=== PATIENT | female | born 1950 | race Caucasian/White ===

== ENCOUNTER 2017-06-06 12:56 | Emergency (ER) | payer MEDICAID, SELFPAY | END 2017-06-06 14:35 | disposition home or self-care (01) | PROVIDERS: Emergency Provider Emergency Medicine; Family Provider Emergency Medicine; Visit Provider Emergency Medicine | DX: S42.295A Other nondisplaced fracture of upper end of left humerus, initial encounter for closed fracture (principal); W05.0XXA Fall from non-moving wheelchair, initial encounter; Z91.81 History of falling; Y92.129 Unspecified place in nursing home as the place of occurrence of the external cause; S80.01XA Contusion of right knee, initial encounter; I10 Essential (primary) hypertension; E78.5 Hyperlipidemia, unspecified; E11.9 Type 2 diabetes mellitus without complications; Z79.4 Long term (current) use of insulin; F41.9 Anxiety disorder, unspecified; Z88.2 Allergy status to sulfonamides | CPT/HCPCS: 73030; 73060; 73562; 99284 ==

== ENCOUNTER → 2017-06-17 10:54 | Outpatient (CLI) | payer MEDICAID, SELFPAY ==
--- NOTE | 2017-06-17 11:00 | XR_ITS ---
XR shoulder LT min 2V CLINICAL INDICATION: Follow-up fracture ITS.REASON: LEFT SHOULDER FRACTURE ORDERING PHYSICIAN: Donnie Aranda MD PATIENT AGE: 66 years COMPARISON: 06/06/2017 FINDINGS: Study is technically limited with decreased resolution. Nondisplaced fracture of the humeral neck noted with good alignment. No evidence of dislocation. The fracture line appears somewhat less apparent compared to the previous study however, this could in part be related to the technique. IMPRESSION: Nondisplaced fracture humeral neck once again noted with good alignment
== END ==
PROVIDERS: PCP Emergency Medicine; Visit Provider Orthopaedic Surgery
DX: S49.90XA Unspecified injury of shoulder and upper arm, unspecified arm, initial encounter (principal)
CPT/HCPCS: 73030

== ENCOUNTER → 2017-07-01 09:58 | Outpatient (CLI) | payer MEDICAID, SELFPAY ==
--- NOTE | 2017-07-01 10:00 | XR_ITS ---
XR shoulder LT min 2V HISTORY: ITS.REASON: follow up humeral next fracture ORDERING PHYSICIAN: Donnie Aranda MD PATIENT AGE: 66 years COMPARISON: 06/17/2017 FINDINGS: Humeral neck fracture once again noted. Fracture is nondisplaced. No significant callus formation. IMPRESSION: No change nondisplaced left humeral neck fracture
== END ==
PROVIDERS: PCP Emergency Medicine; Visit Provider Orthopaedic Surgery
DX: S49.92XA Unspecified injury of left shoulder and upper arm, initial encounter (principal); S42.295D Other nondisplaced fracture of upper end of left humerus, subsequent encounter for fracture with routine healing
CPT/HCPCS: 73030

== ENCOUNTER 2017-07-20 15:47 | Emergency (ER) | payer MEDICAID, SELFPAY ==
[2017-07-20 15:51] VITALS: BMI 108.9
[2017-07-20 15:57] VITALS: BP 147/102; PULSE 78; RESP 26; TEMP 36.7; O2SAT 95; BMI 51.0
[2017-07-20 16:16] LABS: POC Glucose,Bedside 494 mg/dL
[2017-07-20 16:27] LABS: Basophils # 0.1 K/mm3 (0-0.2); Basophils % 0.9 % (0.1-2.0); Eosinophils # 0.4 K/mm3 (0.0-0.4); Eosinophils % 4.9 % (0.1-12.0); Hematocrit 37.8 % (37.0-47.0); Hemoglobin 11.4 g/dL (12.2-16.2); Lymphocytes # 2.1 K/mm3 (0.7-4.5); Lymphocytes % 27.6 K/mm3 (10-50); Mean Corpuscular HGB Conc 30.2 g/dL (31.8-35.4); Mean Corpuscular Hemoglobin 32.9 pg (27.0-31.2); Mean Platelet Volume 8.8 fl (7.4-10.4); Monocytes # 0.5 K/mm3 (0.1-1.0); Monocytes % 6.8 % (1.7-9.3); Neutrophils # 4.6 K/mm3 (1.8-7.8); Neutrophils % 59.9 % (37.0-80.0); Platelet Count 172 K/mm3 (142-424); Red Blood Count 3.47 M/mm3 (4.20-5.40); White Blood Count 7.6 K/mm3 (4.8-10.8)
[2017-07-20 16:40] LABS: Alanine Aminotransferase 31 U/L (12-78); Albumin Level 3.4 gm/dL (3.4-5.0); Albumin/Globulin Ratio 0.9 (1.1-1.8); Alkaline Phosphatase 149 U/L (46-116); Anion Gap 14.3 mEq/L (5-15); Bilirubin,Total 0.4 mg/dL (0.2-1.0); Blood Urea Nitrogen 65 mg/dL (7-18); Calcium 8.8 mg/dL (8.5-10.1); Carbon Dioxide 27 mmol/L (21.0-32.0); Chloride 95 mmol/L (98-107); Creatinine Clearance Estimated 7 mL/min (0-300); Estimated Glomerular Filt Rate 7 ml/min (>60); GFR (African American) 8 ML/MIN (>60); Globulin 3.9 gm/dl (1.3-3.2); Sodium 131 mmol/L (136-145); Total Protein,Serum 7.3 gm/dL (6.4-8.2)
[2017-07-20 16:44] LABS: Creatinine,Serum 6.13 mg/dL (0.55-1.02)
[2017-07-20 16:45] LABS: Glucose 495 mg/dL (74-106)
--- NOTE | 2017-07-20 16:45 | PC.NURSE ---
abdoulaye gaytan reports glucose called from lab to ([phone])
[2017-07-20 16:46] LABS: Aspartate Amino Transferase 22 U/L (15-37); Potassium 5.3 mmoL/L (3.5-5.1)
[2017-07-20 16:51] LABS: Acetone, Serum (Rapid) None Detected (None Detect)
[2017-07-20 18:08] VITALS: BP 136/98; PULSE 82; RESP 22; O2SAT 95
--- NOTE | 2017-07-20 18:12 | HMH.EDGENADL ---
ED Disposition Clinical Impression: Hyperglycemia, ESRD (end stage renal disease) on dialysis Disposition: Admitted As Inpatient Condition on Discharge: Fair Instructions: DI for Hyperglycemia -- Adult Referrals: Jonathan Diaz MD [Primary Care Provider] - Time of Disposition: 18:50 - Critical Care Critical Care Time: No Attestation: On 07/20/17, the high probability of a clinically significant, sudden or life threatening deterioration of the following system(s) required my full and direct attention, intervention and personal management. The time I documented below is in addition to time spent performing reported procedures but includes the following listed in this critical care notation. Total Critical Care Time: 35 Vital system(s) involved:: Metabolic Failure My critical care processes included: Assessment & monitoring of V/S, Initial and Re-exams, Data Review/Interpretation, Coordinating Care, Medication Orders and management, Documentation Medical Decision Making - Medical Records Medical records reviewed: Yes: I reviewed the patient's medical records. Vital Signs: 07/20/17 15:57 07/20/17 18:08 Temperature 98.0 F Temperature Source Oral Pulse Rate [Right Radial] 78 82 Respiratory Rate 26 H 22 Blood Pressure [Right Arm] 147/102 136/98 Blood Pressure Mean [Right Arm] 117 110 Blood Pressure Source [Right Arm] Automatic Cuff Automatic Cuff Blood Pressure Position [Right Arm] Supine Sitting 02 Sat by Pulse Oximetry 95 95 Oxygen Delivery Method Room Air Room Air - Lab Data Lab results reviewed: Yes: I reviewed the patient's lab results. Lab Results 07/20/17 16:03: POC Glucose 494 07/20/17 16:10: WBC 7.6, RBC 3.47 L, Hgb 11.4 L, Hct 37.8, MCV 109.0 H, MCH 32.9 H, MCHC 30.2 L, RDW 14.0, Plt Count 172, MPV 8.8, Neut % (Auto) 59.9, Lymph % (Auto) 27.6, [place] % (Auto) 6.8, Eos % (Auto) 4.9, Baso % (Auto) 0.9, Neut # (Auto) 4.6, Lymph # (Auto) 2.1, [place] # (Auto) 0.5, Eos # (Auto) 0.4, Baso # (Auto) 0.1 07/20/17 16:10: Sodium 131 L, Potassium 5.3 H, Chloride 95 L, Carbon Dioxide 27, Anion Gap 14.3, BUN 65 H, Creatinine 6.13 H, Estimated Creat Clear 7, Estimated GFR 7 L*, Est GFR ( Amer) 8 L*, Glucose 495 H*, Calcium 8.8, Total Bilirubin 0.4, AST 22, ALT 31, Alkaline Phosphatase 149 H, Total Protein 7.3, Albumin 3.4, Globulin 3.9 H, Albumin/Globulin Ratio 0.9 L, Acetone Level None detected 07/20/17 18:29: POC Glucose 576 Result diagrams: 07/20/17 16:10 07/20/17 16:10 Orders (Tests/Meds): ED MEDICATIONS Generic Name Dose Route Start Last Admin Trade Name Freq PRN Reason Stop Dose Admin Furosemide 80 mg 07/20/17 18:41 Lasix 100mg/10ml Vial IV 07/20/17 18:42 ONCE ONE Discontinued Medications Generic Name Dose Route Start Last Admin Trade Name Freq PRN Reason Stop Dose Admin Insulin Human Lispro 12 unit 07/20/17 21:00 Humalog 100 Units/Ml 3ml Vial (Ssi) SQ 08/19/17 20:59 ACHS JIM Insulin Human Lispro 12 unit 07/20/17 17:42 07/20/17 17:43 Humalog 100 Units/Ml 3ml Vial (Ssi) SQ 07/20/17 17:43 12 unit ONCE ONE Administration Insulin Human Regular 5 unit 07/20/17 18:40 Humulin R Insulin 100 Units/Ml 10ml Vial IVP 07/20/17 18:41 ONCE ONE Sodium Polystyrene Sulfonate 30 gm 07/20/17 17:56 07/20/17 18:25 Kayexalate 15gm/60ml Bottle PO 07/20/17 17:57 30 gm ONCE ONE Administration ORDERS Category Date Time Status POC Glucose,Bedside Stat Lab 07/20/17 17:57 Ordered fingerstick glucose [POC Glucose,Bedside] Stat Lab 07/20/17 15:53 Ordered - Physician Consults Physician Consulted: Dr Franz, public health technician at covering for Dr Hidalgo. Time: 18:22 Reason -: Other ( on divert, transfer on hold.) Comment/Response: As discussed at length, advised of patient presentation and findings. Requested patient be transferred to [facility], but was advised by both drop hammer pile driver operator as well as public health technician that erosive contact
[2017-07-20 18:36] LABS: POC Glucose,Bedside 576 mg/dL
--- NOTE | 2017-07-20 18:50 | XR_ITS ---
XR chest portable HISTORY: ITS.REASON: SOA ORDERING PHYSICIAN: Jonathan Diaz MD PATIENT AGE: 66 years COMPARISON: 06/25/2016 FINDINGS: Study is limited technically due to patient's body habitus and portable technique. There is cardiomegaly with mild pulmonary venous congestion consistent with mild CHF. Atelectatic changes are present in the right mid and lower lung zone. No lobar consolidation or collapse. Study is obtained in a somewhat lordotic position. IMPRESSION: 1. Mild CHF. 2. Atelectasis in the right mid and lower lung field. 3. Limited exam. Consider follow-up PA and lateral chest for further evaluation
[2017-07-20 19:15] LABS: Microscopic, Urine URINE MICROSCOPIC (MICROSCOPIC)
[2017-07-20 19:17] LABS: Appearance,Urine SL CLOUDY (Clear); Bilirubin,Urine Negative (Negative); Blood, Urine Negative (Negative); Color,Urine YELLOW (Yellow); Glucose,Urine (UA) 2+ (Negative); Ketones,Urine TRACE (Negative); Leukocyte Esterase,Urine 2+ (Negative); Nitrate,Urine Negative (Negative); Protein,Urine Negative (Negative); Specific Gravity, Urine 1.025 (1.005-1.030); Urobilinogen,Urine 0.2 EU/dl (0.2)
[2017-07-20 19:43] LABS: Bacteria,Urine 4+ /lpf; Squamous Epithelial Cell,Urine Occasional #/hpf (0-5); WBC,Urine TNTC #/hpf (0-3)
[2017-07-20 19:55] LABS: POC Glucose,Bedside 532 mg/dL
[2017-07-20 20:30] VITALS: BP 136/88; PULSE 80; RESP 20; TEMP 36.6; O2SAT 96
== END 2017-07-20 20:29 | disposition admitted as inpatient to this hospital (09) ==
PROVIDERS: Emergency Medicine; Emergency Provider Emergency Medicine; Family Provider Emergency Medicine; PCP Emergency Medicine
DX: E11.22 Type 2 diabetes mellitus with diabetic chronic kidney disease (principal); E11.65 Type 2 diabetes mellitus with hyperglycemia; I12.0 Hypertensive chronic kidney disease with stage 5 chronic kidney disease or end stage renal disease; N18.6 End stage renal disease; Z79.4 Long term (current) use of insulin
CPT/HCPCS: 71045; 80053; 81001; 82009; 82962; 85025; 87086; 87088; 96372; 96374; 96375; 99282; 99283

== ENCOUNTER 2017-07-31 11:38 | Emergency (ER) | payer MEDICAID, SELFPAY ==
[2017-07-31 11:22] VITALS: BP 125/70; PULSE 85; RESP 18; O2SAT 85; BMI 26.6
--- NOTE | 2017-07-31 12:32 | HMH.EDGENADL ---
ED Disposition Clinical Impression: Constipation by delayed colonic transit, ESRD (end stage renal disease) on dialysis, Legal blindness, as defined in [place], Dependence on renal dialysis Hemorrhoids Qualifiers: Hemorrhoid type: unspecified Qualified Code(s): K64.9 - Unspecified hemorrhoids Disposition: Home, Self-Care Condition on Discharge: Fair Additional Instructions: Sit in tubs of warm water for 30 minutes twice a day and try to push the hemorrhoids back in. Use medicine as directed and followup withPCP as needed. Prescriptions: Hydrocortisone/Pramoxine [Proctofoam-Hc 1%-1% Foam] 10 gm RC QID 10 Days #10 foam Referrals: Jonathan Diaz MD [Primary Care Provider] - Time of Disposition: 16:42 - Critical Care Critical Care Time: No Attestation: On 07/31/17, the high probability of a clinically significant, sudden or life threatening deterioration of the following system(s) required my full and direct attention, intervention and personal management. The time I documented below is in addition to time spent performing reported procedures but includes the following listed in this critical care notation. Medical Decision Making - Medical Records Medical records reviewed: Yes: I reviewed the patient's medical records. Vital Signs: 07/31/17 11:22 Temperature Source Oral Pulse Rate [Right Brachial] 85 Respiratory Rate 18 Blood Pressure [Right Arm] 125/70 Blood Pressure Mean [Right Arm] 88 Blood Pressure Source [Right Arm] Automatic Cuff Blood Pressure Position [Right Arm] Sitting 02 Sat by Pulse Oximetry 85 L Oxygen Delivery Method Room Air - Lab Data Lab results reviewed: Yes: I reviewed the patient's lab results. Lab Results 07/31/17 11:35: WBC 9.6, RBC 3.54 L, Hgb 11.9 L, Hct 37.5, MCV 105.7 H, MCH 33.5 H, MCHC 31.6 L, RDW 13.6, Plt Count 228, MPV 8.5, Neut % (Auto) 61.7, Lymph % (Auto) 23.5, [place] % (Auto) 9.6 H, Eos % (Auto) 4.1, Baso % (Auto) 1.0, Neut # (Auto) 5.9, Lymph # (Auto) 2.2, [place] # (Auto) 0.9, Eos # (Auto) 0.4, Baso # (Auto) 0.1 02/16/18 11:35: Sodium 136, Potassium 4.6, Chloride 100, Carbon Dioxide 26, Anion Gap 14.6, BUN 59 H, Creatinine 4.56 H, Estimated Creat Clear 16, Estimated GFR 10 L*, Est GFR ( Amer) 12 L*, Glucose 212 H, Calcium 9.1, Total Bilirubin 0.3, AST 17, ALT 44, Alkaline Phosphatase 176 H, Total Protein 7.6, Albumin 3.6, Globulin 4.0 H, Albumin/Globulin Ratio 0.9 L Result diagrams: 07/31/17 11:35 07/31/17 11:35 Orders (Tests/Meds): ORDERS Category Date Time Status Occult Blood,Stool Stat Lab 07/31/17 12:42 Ordered Urinalysis and Microscopic Stat Lab 07/31/17 12:41 Ordered - CT Data CT Scan: Abdomen, Pelvis Time Received: 16:[address] Reviewed: Yes: I have reviewed the patient's CT results, I have viewed the radiologist's interpretation Findings Narrative: constipation,,,,nothing acute - Wilman Inquiry Pt receiving controlled substance: No General Adult HPI - General Chief complaint: GI Bleed Stated complaint: BLEEDING HEMORRHOIDS Time Seen by Provider: 07/31/17 12:30 Mode of Arrival: EMS Source of Information: Patient, Medical Record (from [place]) Limitations: No Limitations Description of Symptoms (Recalled from ER Triage Doc. by RN): PT STATES SHE HADN'T HAD A BM FOR SEVERAL DAYS; AND WAS GIVEN EXTRA BOWEL CARE. AND THEN WAS NOTED TO HAVE DEFECATED ALOT AND INJURED HER HEMNORRHOIDS - History of Present Illness HPI narrative: Pt is a resident of [facility]. She has DM, ESRD on HD on and Sat. and last night given a rectal suppository for hemorrhoids nad also given a prune juice and a [place] laxative but no BM and now sent to the ED with lower abd pain and bleeding from Hemorrhoids. No fever and no vomiting Onset (ago): hour(s) Location: abdomen, pelvis (hemorrhoids and lower abd pain) Severity: moderate Treatments prior to arrival: other (see above) - Related Data Home Medications Medication Instructions Paul
--- NOTE | 2017-07-31 12:37 | ED_ITS ---
ED Disposition Clinical Impression: Constipation by delayed colonic transit, ESRD (end stage renal disease) on dialysis, Legal blindness, as defined in [place], Dependence on renal dialysis Hemorrhoids Qualifiers: Hemorrhoid type: unspecified Qualified Code(s): K64.9 - Unspecified hemorrhoids Disposition: Home, Self-Care Condition on Discharge: Fair Additional Instructions: Sit in tubs of warm water for 30 minutes twice a day and try to push the hemorrhoids back in. Use medicine as directed and followup withPCP as needed. Prescriptions: Hydrocortisone/Pramoxine [Proctofoam-Hc 1%-1% Foam] 10 gm RC QID 10 Days #10 foam Referrals: Jonathan Diaz MD [Primary Care Provider] - Time of Disposition: 16:42 - Critical Care Critical Care Time: No Attestation: On 07/31/17, the high probability of a clinically significant, sudden or life threatening deterioration of the following system(s) required my full and direct attention, intervention and personal management. The time I documented below is in addition to time spent performing reported procedures but includes the following listed in this critical care notation. Medical Decision Making - Medical Records Medical records reviewed: Yes: I reviewed the patient's medical records. Vital Signs: 07/31/17 11:22 Temperature Source Oral Pulse Rate [Right Brachial] 85 Respiratory Rate 18 Blood Pressure [Right Arm] 125/70 Blood Pressure Mean [Right Arm] 88 Blood Pressure Source [Right Arm] Automatic Cuff Blood Pressure Position [Right Arm] Sitting 02 Sat by Pulse Oximetry 85 L Oxygen Delivery Method Room Air - Lab Data Lab results reviewed: Yes: I reviewed the patient's lab results. Lab Results 07/31/17 11:35: WBC 9.6, RBC 3.54 L, Hgb 11.9 L, Hct 37.5, MCV 105.7 H, MCH 33.5 H, MCHC 31.6 L, RDW 13.6, Plt Count 228, MPV 8.5, Neut % (Auto) 61.7, Lymph % (Auto) 23.5, [place] % (Auto) 9.6 H, Eos % (Auto) 4.1, Baso % (Auto) 1.0, Neut # (Auto) 5.9, Lymph # (Auto) 2.2, [place] # (Auto) 0.9, Eos # (Auto) 0.4, Baso # (Auto) 0.1 02/16/18 11:35: Sodium 136, Potassium 4.6, Chloride 100, Carbon Dioxide 26, Anion Gap 14.6, BUN 59 H, Creatinine 4.56 H, Estimated Creat Clear 16, Estimated GFR 10 L*, Est GFR ( Amer) 12 L*, Glucose 212 H, Calcium 9.1, Total Bilirubin 0.3, AST 17, ALT 44, Alkaline Phosphatase 176 H, Total Protein 7.6, Albumin 3.6, Globulin 4.0 H, Albumin/Globulin Ratio 0.9 L Result diagrams: 07/31/17 11:35 07/31/17 11:35 Orders (Tests/Meds): ORDERS Category Date Time Status Occult Blood,Stool Stat Lab 07/31/17 12:42 Ordered Urinalysis and Microscopic Stat Lab 07/31/17 12:41 Ordered - CT Data CT Scan: Abdomen, Pelvis Time Received: 16:[address] Reviewed: Yes: I have reviewed the patient's CT results, I have viewed the radiologist's interpretation Findings Narrative: constipation,,,,nothing acute - Wilman Inquiry Pt receiving controlled substance: No General Adult HPI - General Chief complaint: GI Bleed Stated complaint: BLEEDING HEMORRHOIDS Time Seen by Provider: 07/31/17 12:30 Mode of Arrival: EMS Source of Information: Patient, Medical Record (from [place]) Limitations: No Limitations Description of Symptoms (Recalled from ER Triage Doc. by RN): PT STATES SHE HADN 'T HAD A BM FOR SEVERAL DAYS; AND WAS GIVEN EXTRA BOWEL CARE. AND THEN WAS NOTED TO HAVE DEFECATED ALOT AND INJURED HER HEMNORRHOIDS - History of Present Illnes
--- NOTE | 2017-07-31 12:41 | CT_ITS ---
CT abdomen pelvis wo con CLINICAL INDICATION: Lower abdominal pain with bloody stool ITS.REASON: abd pain ORDERING PHYSICIAN: Scotty Cherry MD PATIENT AGE: 66 years COMPARISON: None TECHNIQUE: Axial images obtained with sagittal and coronal reformats. PROCEDURE: Oral Contrast: None IV Contrast: None . FINDINGS: There are atelectatic changes in the lung bases. Prior cholecystectomy. The liver, spleen, adrenal glands, are unremarkable. There is pancreatic atrophy. No renal mass or obstructing renal or ureteral calculus is evident. No intestinal obstruction or free air. No focal inflammatory change. No evidence of appendicitis or diverticulitis. There is a moderate amount retained colonic feces with air-fluid level in the ascending and transverse colon. Cystic changes are present in both adnexa measuring up to 2.7 cm on the right and 2.6 cm on the left.. There has been prior kyphoplasty at T12 with compression changes of T12. IMPRESSION: 1. Mild amount retained colonic feces with air-fluid levels in the ascending colon and transverse colon nonspecific and may be seen with diarrhea disease. 2. Small bilateral ovarian cyst. 3. Otherwise negative CT abdomen pelvis without contrast
[2017-07-31 12:59] LABS: Basophils # 0.1 K/mm3 (0-0.2); Eosinophils # 0.4 K/mm3 (0.0-0.4); Eosinophils % 4.1 % (0.1-12.0); Hematocrit 37.5 % (37.0-47.0); Hemoglobin 11.9 g/dL (12.2-16.2); Lymphocytes # 2.2 K/mm3 (0.7-4.5); Lymphocytes % 23.5 K/mm3 (10-50); Mean Corpuscular HGB Conc 31.6 g/dL (31.8-35.4); Mean Corpuscular Hemoglobin 33.5 pg (27.0-31.2); Mean Corpuscular Volume 105.7 fl (81-99); Mean Platelet Volume 8.5 fl (7.4-10.4); Monocytes # 0.9 K/mm3 (0.1-1.0); Monocytes % 9.6 % (1.7-9.3); Neutrophils # 5.9 K/mm3 (1.8-7.8); Neutrophils % 61.7 % (37.0-80.0); Platelet Count 228 K/mm3 (142-424); Red Blood Count 3.54 M/mm3 (4.20-5.40); Red Cell Distribution Width 13.6 % (11.5-17.5); White Blood Count 9.6 K/mm3 (4.8-10.8)
[2017-07-31 13:26] LABS: Alanine Aminotransferase 44 U/L (12-78); Albumin Level 3.6 gm/dL (3.4-5.0); Albumin/Globulin Ratio 0.9 (1.1-1.8); Alkaline Phosphatase 176 U/L (46-116); Anion Gap 14.6 mEq/L (5-15); Aspartate Amino Transferase 17 U/L (15-37); Bilirubin,Total 0.3 mg/dL (0.2-1.0); Blood Urea Nitrogen 59 mg/dL (7-18); Calcium 9.1 mg/dL (8.5-10.1); Carbon Dioxide 26 mmol/L (21.0-32.0); Chloride 100 mmol/L (98-107); Creatinine Clearance Estimated 16 mL/min (0-300); Estimated Glomerular Filt Rate 10 ml/min (>60); GFR (African American) 12 ML/MIN (>60); Glucose 212 mg/dL (74-106); Potassium 4.6 mmoL/L (3.5-5.1); Sodium 136 mmol/L (136-145); Total Protein,Serum 7.6 gm/dL (6.4-8.2)
[2017-07-31 13:27] LABS: Creatinine,Serum 4.56 mg/dL (0.55-1.02)
--- NOTE | 2017-07-31 13:51 | PC.NURSE ---
rt at bedside giving breathing treatment
[2017-07-31 17:10] VITALS: BP 118/79; PULSE 79; RESP 20; TEMP 36.6
== END 2017-07-31 17:16 | disposition home or self-care (01) ==
PROVIDERS: Emergency Provider General Practice; Family Provider Emergency Medicine; PCP Emergency Medicine
DX: K59.01 Slow transit constipation (principal); K64.9 Unspecified hemorrhoids; N18.6 End stage renal disease; Z99.2 Dependence on renal dialysis; H54.8 Legal blindness, as defined in USA; E11.65 Type 2 diabetes mellitus with hyperglycemia; Z79.84 Long term (current) use of oral hypoglycemic drugs; Z88.2 Allergy status to sulfonamides; Z79.899 Other long term (current) drug therapy
CPT/HCPCS: 74176; 80053; 85025; 99282

== ENCOUNTER → 2017-08-05 12:32 | Outpatient (CLI) | payer MEDICAID, SELFPAY ==
--- NOTE | 2017-08-05 12:34 | XR_ITS ---
XR shoulder LT min 2V HISTORY: Follow-up fracture ITS.REASON: follow up LEFT humerus fracture. ORDERING PHYSICIAN: Donnie Aranda MD PATIENT AGE: 66 years COMPARISON: 07/01/2017 FINDINGS: Study is limited technically due to patient's body habitus and inability to be properly positioned. There is healing fracture involving the left humeral neck without significant displacement with some developing callus formation posteriorly. IMPRESSION: Healing left humeral neck fracture
== END ==
PROVIDERS: PCP Emergency Medicine; Visit Provider Orthopaedic Surgery
DX: S42.202A Unspecified fracture of upper end of left humerus, initial encounter for closed fracture (principal)
CPT/HCPCS: 73030

== ENCOUNTER → 2017-08-11 13:48 | Outpatient (REF) | payer MEDICAID, SELFPAY | LOC: LAB 13:48 | PROVIDERS: Visit Provider Emergency Medicine | DX: R06.2 Wheezing (principal); R09.89 Other specified symptoms and signs involving the circulatory and respiratory systems | CPT/HCPCS: 87275; 87276 ==

== ENCOUNTER 2017-08-19 13:45 | Emergency (ER) | payer MEDICAID, SELFPAY ==
[2017-08-19 13:48] VITALS: BP 134/50; PULSE 92; RESP 20; TEMP 37.9; O2SAT 94; BMI 50.3
--- NOTE | 2017-08-19 15:07 | HMH.EDGENADL ---
ED Disposition Clinical Impression: Pneumonia Qualifiers: Pneumonia type: due to unspecified organism Laterality: bilateral Lung location: lower lobe of lung Qualified Code(s): J18.9 - Pneumonia, unspecified organism Disposition: Xfer SNF Condition on Discharge: Fair Instructions: DI for Pneumonia -- Adult Prescriptions: Ertapenem Sodium [Invanz 1gm Vial] 1 gm IV DAILY 10 Days #10 vial levoFLOXacin [Levaquin 250mg tab] 250 mg PO DAILY #10 tab Referrals: Jonathan Diaz MD [Primary Care Provider] - - Critical Care Critical Care Time: No Attestation: On 08/19/17, the high probability of a clinically significant, sudden or life threatening deterioration of the following system(s) required my full and direct attention, intervention and personal management. The time I documented below is in addition to time spent performing reported procedures but includes the following listed in this critical care notation. Medical Decision Making Vital Signs: 08/19/17 13:48 Temperature 100.3 F H Temperature Source Oral Pulse Rate [Right Radial] 92 H Respiratory Rate 20 Blood Pressure [Right Arm] 134/50 Blood Pressure Mean [Right Arm] 78 Blood Pressure Source [Right Arm] Automatic Cuff Blood Pressure Position [Right Arm] Sitting 02 Sat by Pulse Oximetry 94 L Oxygen Delivery Method Nasal Cannula Oxygen Flow Rate (LPM) 2 - Lab Data Lab Results 08/19/17 15:10: WBC 14.5 H, RBC 3.37 L, Hgb 11.4 L, Hct 36.8 L, MCV 109.1 H, MCH 33.8 H, MCHC 31.0 L, RDW 14.0, Plt Count 227, MPV 7.9, Neut % (Auto) 84.2 H, Lymph % (Auto) 8.9 L, [place] % (Auto) 5.6, Eos % (Auto) 0.9, Baso % (Auto) 0.4, Neut # (Auto) 12.2 H, Lymph # (Auto) 1.3, [place] # (Auto) 0.8, Eos # (Auto) 0.1, Baso # (Auto) 0.1 08/19/17 15:10: Sodium 132 L, Potassium 5.7 H, Chloride 95 L, Carbon Dioxide 23, Anion Gap 19.7 H, BUN 76 H, Creatinine 6.35 H, Estimated Creat Clear 7, Estimated GFR 7 L*, Est GFR ( Amer) 8 L*, Glucose 358 H, Calcium 8.8, Total Bilirubin 0.4, AST 56 H, ALT 64, Alkaline Phosphatase 228 H, Total Protein 7.7, Albumin 3.2 L, Globulin 4.5 H, Albumin/Globulin Ratio 0.7 L 08/19/17 15:10: Lactic Acid 1.3 08/19/17 16:45: Influenza Type A Ag Negative, Influenza Type B Ag Negative Result diagrams: 08/19/17 15:10 08/19/17 15:10 Orders (Tests/Meds): ED MEDICATIONS Discontinued Medications Generic Name Dose Route Start Last Admin Trade Name Freq PRN Reason Stop Dose Admin Acetaminophen 650 mg 08/19/17 15:22 08/19/17 15:29 Acetaminophen 325mg Tab PO 08/19/17 15:23 650 mg ONCE ONE Administration Albuterol/Ipratropium 3 ml 08/19/17 17:20 Duoneb 3ml Neb IH 08/19/17 17:21 ONCE ONE Ertapenem 0.5 gm/ Sodium 50 mls @ 100 mls/hr 08/19/17 16:35 08/19/17 17:10 Chloride IV 08/19/17 16:36 100 mls/hr ONCE ONE Administration Protocol Levofloxacin 250 mg 08/19/17 16:36 08/19/17 17:11 Levaquin 250mg Tab PO 08/19/17 16:37 250 mg ONCE ONE Administration Protocol ORDERS Category Date Time Status Urinalysis and Microscopic Stat Lab 08/19/17 14:03 Ordered Blood Culture Stat Micro 08/19/17 15:10 Received - Radiology Data #1 Image(s): Chest Image Reviewed: Yes I discussed the image results w/the radiologist Atelectasis versus infiltrate both bases - Wilman Inquiry Pt receiving controlled substance: No Medical Decision Making Narrative: 4:30 PM: Discussed with Amari Rasmussen, who also discussed with Dr. Diaz. They recommend starting patient on Levaquin per 50 mg p.o. daily and Invanz 500 mg IV daily and discharge back to the [facility]. 5:15 PM: The patient has some generalized wheezing, but is not in respiratory distress. General Adult HPI - General Chief complaint: Fever Stated complaint: fever Mode of Arrival: EMS Limitations: Altered Mental Status Description of Symptoms (Recalled from ER Triage Doc. by RN): Sent from [facility] for fever. - History of Present
--- NOTE | 2017-08-19 15:19 | XR_ITS ---
XR chest portable HISTORY: ITS.REASON: fever ORDERING PHYSICIAN: Ulisses Costa MD PATIENT AGE: 66 years COMPARISON: To 518 FINDINGS: Low lung volumes. Mild cardiomegaly without failure.. There are atelectatic or fibrotic changes in the right lower lung zone. Patchy density is present in the left mid to lower lungs and may be due to an area of atelectasis or infiltrate. No obvious effusions. No acute bony anomalies. IMPRESSION: Left lower lobe atelectasis and/or infiltrate with atelectatic changes in the right lower lobe.
[2017-08-19 15:23] LABS: Basophils # 0.1 K/mm3 (0-0.2); Basophils % 0.4 % (0.1-2.0); Eosinophils # 0.1 K/mm3 (0.0-0.4); Eosinophils % 0.9 % (0.1-12.0); Hematocrit 36.8 % (37.0-47.0); Hemoglobin 11.4 g/dL (12.2-16.2); Lymphocytes # 1.3 K/mm3 (0.7-4.5); Lymphocytes % 8.9 K/mm3 (10-50); Mean Corpuscular Hemoglobin 33.8 pg (27.0-31.2); Mean Corpuscular Volume 109.1 fl (81-99); Mean Platelet Volume 7.9 fl (7.4-10.4); Monocytes # 0.8 K/mm3 (0.1-1.0); Monocytes % 5.6 % (1.7-9.3); Neutrophils # 12.2 K/mm3 (1.8-7.8); Neutrophils % 84.2 % (37.0-80.0); Platelet Count 227 K/mm3 (142-424); Red Blood Count 3.37 M/mm3 (4.20-5.40); White Blood Count 14.5 K/mm3 (4.8-10.8)
[2017-08-19 15:32] LABS: Alanine Aminotransferase 64 U/L (12-78); Albumin Level 3.2 gm/dL (3.4-5.0); Albumin/Globulin Ratio 0.7 (1.1-1.8); Alkaline Phosphatase 228 U/L (46-116); Anion Gap 19.7 mEq/L (5-15); Aspartate Amino Transferase 56 U/L (15-37); Bilirubin,Total 0.4 mg/dL (0.2-1.0); Calcium 8.8 mg/dL (8.5-10.1); Carbon Dioxide 23 mmol/L (21.0-32.0); Chloride 95 mmol/L (98-107); Creatinine Clearance Estimated 7 mL/min (0-300); Estimated Glomerular Filt Rate 7 ml/min (>60); GFR (African American) 8 ML/MIN (>60); Globulin 4.5 gm/dl (1.3-3.2); Glucose 358 mg/dL (74-106); Potassium 5.7 mmoL/L (3.5-5.1); Sodium 132 mmol/L (136-145); Total Protein,Serum 7.7 gm/dL (6.4-8.2)
[2017-08-19 15:34] LABS: Lactic Acid 1.3 mmol/L (0.4-2.0)
[2017-08-19 15:35] LABS: Blood Urea Nitrogen 76 mg/dL (7-18)
[2017-08-19 15:36] LABS: Creatinine,Serum 6.35 mg/dL (0.55-1.02)
[2017-08-19 17:53] VITALS: PULSE 83; PULSE 84
--- NOTE | 2017-08-19 18:38 | PC.NURSE ---
report called to INO Martinez at [place]
[2017-08-19 19:00] VITALS: BP 134/59; PULSE 78; RESP 20; TEMP 36.9; O2SAT 97
== END 2017-08-19 19:00 | disposition home or self-care (01) ==
PROVIDERS: Emergency Provider Emergency Medicine; Family Provider Emergency Medicine; PCP Emergency Medicine
DX: J18.9 Pneumonia, unspecified organism (principal); E11.65 Type 2 diabetes mellitus with hyperglycemia; Z79.4 Long term (current) use of insulin; E78.5 Hyperlipidemia, unspecified; I10 Essential (primary) hypertension; Z88.1 Allergy status to other antibiotic agents; Z88.2 Allergy status to sulfonamides
CPT/HCPCS: 36415; 71045; 80053; 83605; 85025; 87040; 87275; 87276; 96365; 99284; J1335

== ENCOUNTER → 2017-09-16 12:59 | Outpatient (CLI) | payer MEDICAID, SELFPAY ==
--- NOTE | 2017-09-16 13:03 | XR_ITS ---
XR shoulder LT min 2V COMPARISON: Left shoulder 08/05/2017 HISTORY: Follow-up fracture shoulder TECHNIQUE: 3 views left shoulder FINDINGS: Detail somewhat degraded due to the patient's large size. The lucent fracture zone humeral neck is still seen with some bony resorption along the fracture line. There is healthy early callus formation present however and alignment is satisfactory. Overall fairly stable. There is a very faint opacity adjacent to the lateral border of the scapula and between the scapula and humeral head and this was not definitely seen on the previous study. This could possibly be a small a bulge in flake fracture of the lateral border of the scapula. There is a double density contour line at the humeral head of medially on the frontal projection external rotation view. This raises concern possibly there may be fracture involving the humeral head articular surface itself. IMPRESSION: \ Progressive healing of the humeral neck fracture. More prominent callus formation noted and alignment appears stable & satisfactory. Fracture line remains clearly evident require ongoing follow-up. -The line at the medial humeral head articular surface seen on the external AP rotation view may reflect fracture involvement at the humeral head itself. Ongoing follow-up required
== END ==
PROVIDERS: PCP Emergency Medicine; Visit Provider Orthopaedic Surgery
DX: S42.209A Unspecified fracture of upper end of unspecified humerus, initial encounter for closed fracture (principal)
CPT/HCPCS: 73030

== ENCOUNTER → 2018-03-12 08:18 | Outpatient (CLI) | payer MEDICARE, MEDICAID, SELFPAY ==
--- NOTE | 2018-03-12 08:20 | CA_ITS ---
PROCEDURE: 2-D M-mode and color Doppler study INDICATIONS FOR THE TEST: Chest pain COPD Heart Murmur Tobacco Smoking Palpitations Fatigue Syncope EdemaX HypertensionXDiabetes MellitusX Rheumatic Fever SOB DOEXXObesityXHyperlipidemiaX Family History HD Additional History CKD TDS APICALS OFF AXIS EF APPEARS WNL HEAVY MAC PATIENT INFORMATION HEIGHT: 63 WEIGHT:299 GENDER: Female B/P:121/47 2-D/M-MODE INTERPRETATION: 2-D MEASUREMENTS OBSERVED VALUES IN CMS Right Ventricular Dimension (RVDd) 3.4 Interventricular Septum (Thickness)(IVsd) 1.4 Left Ventricular Internal Dimensions(LVIDd) 4.7 Left Ventricular Posterior Wall (Thickness)(LVPWd) 1.0 Aortic Root 3.3 Aortic Cusp Separation 1.5 Left Atrial Dimensions (LAD) 4.1 2D 1. Left atrium is mildly enlarged, left ventricle is normal size, mild concentric left ventricular hypertrophy, visually estimated ejection fraction 55% with no regional wall motion abnormality. 2. The right atrium and right ventricle are moderately enlarged with normal contractility. 3. The aortic valve is thickened and calcified leaflet continue to display mobility. 4. The mitral valve has dense mitral annular calcification. 5. The tricuspid and pulmonic valve are poorly visualized. 6. No significant pericardial effusion noted. DOPPLER INTERROGATION: Doppler interrogation of the aortic, mitral and tricuspid valvular presence of mild mitral and tricuspid regurgitation, tricuspid regurgitation jet velocity is insufficient for calculation of the right ventricular systolic pressure, diastolic parameters are inconclusive. CONCLUSION: 1. Technically difficult study because of the patient's factor and poor acoustic windows 2. Mildly enlarged left atrium, normal left ventricular size, mild concentric left ventricular hypertrophy, visually estimated ejection fraction of 55% with no regional wall motion abnormality, diastolic parameters are inconclusive. 3. Moderately enlarged right atrium and right ventricle, contractility of the right ventricle is normal. 4. Mild mitral and tricuspid regurgitation 5. No significant pericardial effusion noted.
== END ==
PROVIDERS: Family Provider Emergency Medicine; PCP Emergency Medicine; Visit Provider Internal Medicine Cardiovascular Disease
DX: I50.32 Chronic diastolic (congestive) heart failure (principal); E11.9 Type 2 diabetes mellitus without complications; E78.5 Hyperlipidemia, unspecified; I10 Essential (primary) hypertension; J44.9 Chronic obstructive pulmonary disease, unspecified; N18.6 End stage renal disease; R60.9 Edema, unspecified; Z99.2 Dependence on renal dialysis
CPT/HCPCS: 93306